=== PATIENT | female | born 1975 | race Caucasian/White ===

== ENCOUNTER → 2017-11-11 | Outpatient (CLI) | payer OTHER ==
[~2017-11-11] VITALS: Ht 157.5 cm; Wt 76.2 kg
== END | disposition home or self-care (01) ==
LOC: OFIC 805 09:05
DX: J31.0 Chronic rhinitis (principal); R22.1 Localized swelling, mass and lump, neck; E04.1 Nontoxic single thyroid nodule; R49.8 Other voice and resonance disorders

== ENCOUNTER 2017-11-25 11:24 | Outpatient (CLI) | payer OTHER ==
[~2017-11-25] VITALS: Ht 152.4 cm; Wt 76.2 kg
== END 2017-11-25 11:45 | disposition home or self-care (01) ==
LOC: OFIC 805 11:24
DX: R22.1 Localized swelling, mass and lump, neck (principal); E04.1 Nontoxic single thyroid nodule; R49.8 Other voice and resonance disorders; J31.0 Chronic rhinitis

== ENCOUNTER → 2018-04-14 | Day surgery (SDC) | payer OTHER ==
[~2018-04-14] MED LIST: ADVAIR HFA 230/12 GM IH; PANADOL EXTRA500 MG PO; PERCOCET 5-3251 EACH PO; PROVENTIL HFA6.7 GM IH; ZYRTEC10 M3 PO
== END | disposition home or self-care (01) ==
LOC: CIR.AMB 06:38
DX: D34 Benign neoplasm of thyroid gland (principal); E04.8 Other specified nontoxic goiter